=== PATIENT | male | born 1945 | race Caucasian/White ===

== ENCOUNTER 2016-08-25 05:13 | Inpatient (IN) | payer MEDICARE, OTHER ==
[~2016-08-25] VITALS: Ht 172.7 cm; Wt 57.3 kg
--- NOTE | 2016-08-25 15:50 | NUR ---
1545-PT MOVED TO ROOM 200-1 WITH JOSE. NAD
--- NOTE | 2016-08-28 16:59 | NUR ---
1600: PT INCREASING SOB AND ANXIOUS, REINFORCE INSTRUCTIONS THAT PHYSCIAN REALLY WANTED HIM TO STAY ONE MORE DAY. PT VERB AGREEMENT. WILL CONTINUE TO MONITOR. DR. DAY NOTIFIED.
--- NOTE | 2016-08-29 07:33 | NUR ---
PT HAD OVERNIGHT PULSE OX STUDY ON ROOM AIR. PT PULSE OX DROPPED TO 84% SEVERAL TIMES DURING THE NIGHT.
--- NOTE | 2016-08-29 12:00 | NUR ---
DISCHARGE ORDERS RECIEVED. PATIENT IS WAITING ON PORTABLE OXYGEN TO BE DELIVERED TO HIS ROOM AND ALSO WAITING ON HIS DAUGHTER TO ARRIVE FOR A RIDE HOME.
--- NOTE | 2016-08-29 14:00 | NUR ---
PATIENT'S PORTABLE OXYGEN ARRIVED TO PATIENT'S ROOM. WENT OVER PATIENT'S DISCHARGE INSTRUCTIONS AND ALL HIS QUESTIONS WERE ANSWERED. ALSO WENT OVER EVERY MEDICATION WITH THE PATIENT AND WHAT IT WAS FOR AND WHAT POTENTIAL SIDE EFFECTS COULD HAPPEN WHILE TAKING THAT PARTICULAR MEDICATION. HE ALSO HAD 3 DIFFERENT SCRIPTS THAT WERE GIVEN TO HIM AND HE HANDED THEM TO HIS EX- WHO HE STATED HELPED HIM TAKE CARE OF HIS MEDICATIONS. HIS FLONASE NASAL SPRAY WAS ALSO GIVEN TO HIM TO TAKE HOME WITH HIM SINCE IT WAS A ONE PERSON USE BOTTLE.
--- NOTE | 2016-08-29 14:15 | NUR ---
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
--- NOTE | 2016-08-29 16:25 | NUR ---
PATIENT EXITED ICU VIA W/C WITH PORTABLE OXYGEN ACCOMPANIED BY DAUGHTER AND SON-IN-LAW IN NO ACUTE DISTRESS ON HIS WAY TO HIS DAUGHTER'S HOME. [facility] WAS NOTIFIED THAT HE WAS LEAVING THE HOSPITAL AND THEY STATED THAT THEY WOULD BE OUT TO HIS HOUSE TO BRING OUT A OXYGEN CONCENTRATOR. REITERATED THE OXYGEN SAFETY MEASURES TO THE DAUGHTER AND SON-IN-LAW SUCH , NO SMOKING WITH THE OXYGEN AND HOW TO TURN IT ON AND OFF. THE D/C INSTRUCTIONS AND HOME MEDICATION LIST ALONG WITH PRESCRIPTIONS WERE ALREADY GONE OVER WITH THE PATIENT AND HIS EX- EARLIER TODAY AND THEY HAVE THEM IN THEIR POSESSION ALREADY. PATIENT VERY APPRECIATIVE FOR THE CARE HE RECEIVED IN ICU.
== END 2016-08-29 16:25 | disposition left against medical advice (07) | DRG 871 ==
LOC: ER 05:13 → ICU 07:48
PROVIDERS: ADMIT Internal Medicine
DX: A41.9 Sepsis, unspecified organism (principal); J18.9 Pneumonia, unspecified organism; I50.23 Acute on chronic systolic (congestive) heart failure; J44.0 Chronic obstructive pulmonary disease with (acute) lower respiratory infection; I13.0 Hypertensive heart and chronic kidney disease with heart failure and stage 1 through stage 4 chronic kidney disease, or unspecified chronic kidney disease; N17.9 Acute kidney failure, unspecified; R65.20 Severe sepsis without septic shock; N18.9 Chronic kidney disease, unspecified; I25.10 Atherosclerotic heart disease of native coronary artery without angina pectoris; Z95.1 Presence of aortocoronary bypass graft; I27.2 Other secondary pulmonary hypertension; E78.5 Hyperlipidemia, unspecified; Z87.442 Personal history of urinary calculi; M19.90 Unspecified osteoarthritis, unspecified site; K21.9 Gastro-esophageal reflux disease without esophagitis; J30.9 Allergic rhinitis, unspecified; Z79.899 Other long term (current) drug therapy; F17.210 Nicotine dependence, cigarettes, uncomplicated; Z82.49 Family history of ischemic heart disease and other diseases of the circulatory system; Z80.9 Family history of malignant neoplasm, unspecified; R74.8 Abnormal levels of other serum enzymes; R79.89 Other specified abnormal findings of blood chemistry; I35.0 Nonrheumatic aortic (valve) stenosis; F10.21 Alcohol dependence, in remission; I73.9 Peripheral vascular disease, unspecified
CPT/HCPCS: 36415; 87502; 93306; J1650; J3370; J7050

== ENCOUNTER 2016-08-25 05:13 | Emergency (ER) | payer MEDICARE, OTHER | END 2016-08-25 07:47 | disposition critical access hospital (66) | LOC: ER 05:13 | DX: J44.1 Chronic obstructive pulmonary disease with (acute) exacerbation (principal); J18.9 Pneumonia, unspecified organism; K21.9 Gastro-esophageal reflux disease without esophagitis; E78.5 Hyperlipidemia, unspecified; I10 Essential (primary) hypertension; F17.210 Nicotine dependence, cigarettes, uncomplicated; Z95.1 Presence of aortocoronary bypass graft; Z86.73 Personal history of transient ischemic attack (TIA), and cerebral infarction without residual deficits; Z87.442 Personal history of urinary calculi; Z79.82 Long term (current) use of aspirin; Z79.899 Other long term (current) drug therapy; Z88.1 Allergy status to other antibiotic agents; Z88.8 Allergy status to other drugs, medicaments and biological substances | CPT/HCPCS: 36415; 87502; 96365; 96375 ==

== ENCOUNTER 2016-08-30 12:29 | Emergency (ER) | payer MEDICARE, OTHER | END 2016-08-30 16:35 | disposition E | LOC: ER 12:29 | DX: I46.9 Cardiac arrest, cause unspecified (principal); J18.9 Pneumonia, unspecified organism; J44.9 Chronic obstructive pulmonary disease, unspecified; I10 Essential (primary) hypertension; K21.9 Gastro-esophageal reflux disease without esophagitis; E78.00 Pure hypercholesterolemia, unspecified; F17.210 Nicotine dependence, cigarettes, uncomplicated; Z88.1 Allergy status to other antibiotic agents; Z95.1 Presence of aortocoronary bypass graft | CPT/HCPCS: 36415; 36556; 92950; 96361; 96374; J0282; J7050 ==